=== PATIENT | female | born 1995 | race African-American/Black ===

== ENCOUNTER 2024-07-11 10:12 | Emergency (ER) | payer SELFPAY ==
[~2024-07-11] VITALS: Ht 180.3 cm; Wt 70.0 kg
[2024-07-11 10:29] VITALS: BP 138/77; TEMP 98; O2SAT 100
[2024-07-11 10:59] LABS: HEMATOCRIT 35.5 % (36.0-47.0); HEMOGLOBIN 11.7 g/dl (12.0-15.5); MEAN CORPUSCULAR HEMOGLOBIN 29.2 pg (27.0-33.0); MEAN CORPUSCULAR VOLUME 88.5 fl (80.0-96.0); PLATELET COUNT, AUTOMATED 187 10^3/uL (150-450); RED BLOOD COUNT 4.01 10^6/uL (4.00-5.40); WHITE BLOOD COUNT 7.4 10^3/uL (4.0-10.0)
[2024-07-11 11:25] LABS: AMPHETAMINES LEVEL URINE NEGATIVE (NEGATIVE); BARBITURATES URINE NEGATIVE (NEGATIVE); BENZODIAZEPINES URINE NEGATIVE (NEGATIVE); COCAINE METABOLITE URINE NEGATIVE (NEGATIVE); METHADONE URINE NEGATIVE (NEGATIVE); OPIATES URINE NEGATIVE (NEGATIVE); PHENCYCLIDINE URINE NEGATIVE (NEGATIVE)
[2024-07-11 11:26] LABS: CANNABINOIDS URINE POSITIVE (NEGATIVE)
[2024-07-11 11:28] LABS: ETHYL ALCOHOL (ETHANOL) 0.004 % (0.000-0.010)
[2024-07-11 11:30] LABS: ALBUMIN 3.7 G/DL (3.2-5.2); ALKALINE PHOSPHATASE 59 U/L (35-104); ALT/SGPT 17 U/L (7.0-40); AST/SGOT 19 U/L (<34); BILIRUBIN,DIRECT 0.2 MG/DL (<0.4); BILIRUBIN,TOTAL 0.7 MG/DL (0.3-1.2); BLOOD UREA NITROGEN 11 MG/DL (9-23); CALCIUM LEVEL 9.1 MG/DL (8.5-10.1); CARBON DIOXIDE LEVEL 26 MMOL/L (20-31); CHLORIDE LEVEL 110 MMOL/L (98-107); CREATININE FOR GFR 0.89 MG/DL (0.55-1.30); GLOMERULAR FILTRATION RATE > 60.0 (>60); GLUCOSE, FASTING 96 MG/DL (60-100); POTASSIUM SERUM 4.2 MMOL/L (3.5-5.1); SALICYLATE LEVEL < 3.0 MG/DL (<30); SODIUM LEVEL 143 MMOL/L (136-145); TOTAL PROTEIN 6.9 G/DL (5.7-8.2)
[2024-07-11 11:32] LABS: THYROID STIMULATING HORMONE 1.576 uIU/ML (0.55-4.78)
[2024-07-11] MEDS ORDERED: HYDR50CA2 PO (13:32)
[2024-07-11] MEDS ORDERED: PROP80CA PO (13:32)
[2024-07-11] MEDS ORDERED: POTA10807 PO (13:32)
[2024-07-11] MEDS ORDERED: NORT0.5T2 PO (13:32)
[2024-07-11] MEDS ORDERED: VENTAER INH (13:32)
[2024-07-11] MEDS ORDERED: LITH300C PO (13:32)
[2024-07-11] MEDS ORDERED: LYRI300C PO (13:32)
[2024-07-11] MEDS ORDERED: ATOG60TA PO (13:32)
[2024-07-11] MEDS ORDERED: REXU1TAB2 PO (13:32)
[2024-07-11] MEDS ORDERED: QUET100T2 PO (13:32)
[2024-07-11] MEDS ORDERED: FLUD0.1T PO (13:32)
[2024-07-11] MEDS ORDERED: HOME MED LIST COMPLETE! XX SCH (13:35)
== END 2024-07-11 13:54 | disposition home or self-care (01) ==
LOC: M ED 10:12
DX: F41.9 Anxiety disorder, unspecified (principal); J45.909 Unspecified asthma, uncomplicated; F17.200 Nicotine dependence, unspecified, uncomplicated; F12.10 Cannabis abuse, uncomplicated

== ENCOUNTER 2024-07-11 23:43 | Inpatient (IN) | payer BC, SELFPAY ==
[~2024-07-11] VITALS: Ht 177.8 cm; Wt 60.6 kg
[~2024-07-11 23:43] MED LIST: ATOG60TA PO; FLUD0.1T PO; HYDR50CA2 PO; LITH300C PO; LYRI300C PO; NORT0.5T2 PO; POTA10807 PO; PROP80CA PO; QUET100T2 PO; REXU1TAB2 PO; VENTAER INH
[2024-07-12 00:45] LABS: BASO # 0.1 10^3/uL (0.0-0.2); BASO % 0.8 % (0.0-1.0); EOS # 0.2 10^3/uL (0.0-0.5); HEMATOCRIT 32.7 % (36.0-47.0); HEMOGLOBIN 10.9 g/dl (12.0-15.5); LYMPH # 1.6 10^3/uL (1.5-5.0); LYMPH % 20.5 % (24.0-44.0); MEAN CORPUSCULAR HEMOGLOBIN 29.3 pg (27.0-33.0); MEAN CORPUSCULAR HGB CONC 33.3 g/dl (32.0-36.5); MEAN CORPUSCULAR VOLUME 87.9 fl (80.0-96.0); MONO # 0.7 10^3/uL (0.0-0.8); MONO % 8.5 % (2.0-8.0); NEUTROPHILS # 5.4 10^3/uL (1.5-8.5); NEUTROPHILS % 68.1 % (36.0-66.0); PLATELET COUNT, AUTOMATED 164 10^3/uL (150-450); RED BLOOD COUNT 3.72 10^6/uL (4.00-5.40); WHITE BLOOD COUNT 7.9 10^3/uL (4.0-10.0)
[2024-07-12 00:55] LABS: ETHYL ALCOHOL (ETHANOL) 0.004 % (0.000-0.010)
[2024-07-12 00:56] LABS: CPK CREATINE PHOSPHOKINASE 164 U/L (34-145)
[2024-07-12 00:57] LABS: SALICYLATE LEVEL < 3.0 MG/DL (<30)
[2024-07-12 00:59] LABS: THYROID STIMULATING HORMONE 2.891 uIU/ML (0.55-4.78)
[2024-07-12 01:01] LABS: ALBUMIN 3.6 G/DL (3.2-5.2); ALKALINE PHOSPHATASE 51 U/L (35-104); ALT/SGPT 16 U/L (7.0-40); AST/SGOT 15 U/L (<34); BILIRUBIN,DIRECT 0.4 MG/DL (<0.4); BILIRUBIN,TOTAL 1.1 MG/DL (0.3-1.2); BLOOD UREA NITROGEN 8 MG/DL (9-23); CARBON DIOXIDE LEVEL 24 MMOL/L (20-31); CHLORIDE LEVEL 112 MMOL/L (98-107); CREATININE FOR GFR 0.84 MG/DL (0.55-1.30); GLOMERULAR FILTRATION RATE > 60.0 (>60); GLUCOSE, FASTING 91 MG/DL (60-100); POTASSIUM SERUM 4.4 MMOL/L (3.5-5.1); SODIUM LEVEL 143 MMOL/L (136-145); TOTAL PROTEIN 6.5 G/DL (5.7-8.2)
[2024-07-12] MEDS: NS (Normal Saline) 0.9% 1,000 ML IV ONE (01:12)
[2024-07-12 02:47] LABS: HCG, SERUM QUALITATIVE NEGATIVE (NEGATIVE)
[2024-07-12 03:07] LABS: AMPHETAMINES LEVEL URINE NEGATIVE (NEGATIVE)
[2024-07-12 03:08] LABS: BARBITURATES URINE NEGATIVE (NEGATIVE); BENZODIAZEPINES URINE NEGATIVE (NEGATIVE); COCAINE METABOLITE URINE NEGATIVE (NEGATIVE); METHADONE URINE NEGATIVE (NEGATIVE); OPIATES URINE NEGATIVE (NEGATIVE); PHENCYCLIDINE URINE NEGATIVE (NEGATIVE)
[2024-07-12 03:12] LABS: CANNABINOIDS URINE POSITIVE (NEGATIVE)
[2024-07-12] MEDS: ONDANSETRON 4MG 2ML VIAL IV ONE (03:13)
[2024-07-12 05:03] LABS: BLOOD UREA NITROGEN 7 MG/DL (9-23); CALCIUM LEVEL 8.2 MG/DL (8.5-10.1); CARBON DIOXIDE LEVEL 23 MMOL/L (20-31); CHLORIDE LEVEL 114 MMOL/L (98-107); CREATININE FOR GFR 0.74 MG/DL (0.55-1.30); GLOMERULAR FILTRATION RATE > 60.0 (>60); GLUCOSE, FASTING 89 MG/DL (60-100); POTASSIUM SERUM 4.3 MMOL/L (3.5-5.1); SODIUM LEVEL 145 MMOL/L (136-145)
[2024-07-12] MEDS ORDERED: MOM 30ML SUSPENSION UDC PO PRN (06:30)
[2024-07-12] MEDS ORDERED: MAALOX 30 ML SUSP *UDC PO PRN (06:30)
[2024-07-12] MEDS ORDERED: HOME MED LIST COMPLETE! XX SCH (06:40)
[2024-07-12] MEDS: diphenhydrAMINE 25MG CAP PO PRN (09:47)
[2024-07-12 10:15] VITALS: BP 131/81; TEMP 98.1; O2SAT 100
[2024-07-12] MEDS: OLANZapine ORAL DISINTEGRATING TAB 5MG PO ONE (10:36)
[2024-07-12] MEDS: QUEtiapine FUMARATE 100 MG TAB PO SCH (21:22)
[2024-07-12] MEDS: LITHIUM CARBONATE 300 MG CAP PO SCH (21:22)
[2024-07-12] MEDS: PREGABALIN 100 MG CAP (LYRICA) PO SCH (21:22)
[2024-07-12] MEDS: hydrOXYzine 50 MG TAB PO SCH (21:22)
[2024-07-13 06:34] VITALS: BP 109/59; TEMP 98; O2SAT 99
[2024-07-13 09:35] VITALS: BP 122/92
[2024-07-13] MEDS: BREXPIPRAZOLE 0.5MG TABLET (REXULTI) PO SCH (09:37)
[2024-07-13] MEDS: ACETAMINOPHEN 325 MG TAB PO PRN (09:37)
[2024-07-13] MEDS: PROPRANOLOL 80MG LA CAP PO SCH (09:38)
[2024-07-13] MEDS: FLUDROCORTISONE ACETATE 0.1 MG TAB PO SCH (09:38)
[2024-07-13] MEDS: POTASSIUM CITRATE 1080MG (10MEQ) TAB PO SCH (09:38)
[2024-07-13 15:12] VITALS: BP 167/67; TEMP 98.3; O2SAT 98
[2024-07-13] MEDS ORDERED: BACL10TA2 PO (15:47)
[2024-07-13] MEDS ORDERED: MIDO2.5T3 PO (15:47)
[2024-07-14 06:35] VITALS: BP 104/67; TEMP 97.9; O2SAT 100
[2024-07-14 07:58] VITALS: BP 120/79; TEMP 97.7; O2SAT 100
[2024-07-14 14:52] VITALS: BP 121/70; TEMP 97.9; O2SAT 100
[2024-07-14] MEDS: ALBUTEROL 90 MCG/ACT 8GM HFA INHALER INH PRN (20:09)
[2024-07-15 06:27] VITALS: BP 115/72; TEMP 97.2; O2SAT 100
[2024-07-15 08:20] VITALS: BP 132/90; TEMP 97.8; O2SAT 93
[2024-07-15 08:33] VITALS: BP 132/90
[2024-07-15] MEDS: OLANZapine ORAL DISINTEGRATING TAB 5MG PO PRN (14:31)
[2024-07-15] MEDS: fluvoxaMINE MALEATE 50 MG TAB PO SCH (21:04)
[2024-07-16 06:16] VITALS: BP 111/64; TEMP 97.8; O2SAT 100
[2024-07-16 16:08] VITALS: BP 124/74; TEMP 97.8; O2SAT 100
[2024-07-16] MEDS: traZODone 50 MG TAB PO PRN (20:02)
[2024-07-17 06:28] VITALS: BP 127/72; TEMP 98.1; O2SAT 100
[2024-07-17 08:12] VITALS: BP 124/82
[2024-07-17 14:59] VITALS: BP 114/60; TEMP 98.4; O2SAT 98
[2024-07-17 15:25] VITALS: BP 114/60; TEMP 98.4; O2SAT 98
[2024-07-17] MEDS: MIDODRINE 2.5 MG TAB PO PRN (17:20)
[2024-07-18 06:25] VITALS: BP 115/57; TEMP 98.3; O2SAT 99
[2024-07-18 09:09] VITALS: BP 127/77
[2024-07-18 16:37] VITALS: BP 121/69; TEMP 97.9; O2SAT 99
[2024-07-19 06:32] VITALS: BP 144/67; TEMP 97.5; O2SAT 99
[2024-07-19 08:15] VITALS: BP 138/87
[2024-07-19 14:56] VITALS: BP 131/72; TEMP 98.7; O2SAT 100
[2024-07-20 06:25] VITALS: BP 114/56; TEMP 96.9; O2SAT 97
[2024-07-20] MEDS: ATOMOXETINE HCL 10MG CAPSULE (STRATTERA) PO SCH (13:07)
[2024-07-20 15:09] VITALS: BP 118/55; TEMP 98.6; O2SAT 100
[2024-07-21 06:32] VITALS: BP 113/63; TEMP 97.9; O2SAT 100
[2024-07-21 14:37] VITALS: BP 114/59; TEMP 98.8; O2SAT 96
[2024-07-21] MEDS: IBUPROFEN 400MG TAB PO PRN (17:34)
[2024-07-22 06:21] VITALS: BP 121/79; TEMP 97.7; O2SAT 100
[2024-07-22 15:51] VITALS: BP 115/62; TEMP 98.7; O2SAT 97
[2024-07-23 07:02] VITALS: BP 104/65; TEMP 98; O2SAT 100
[2024-07-23 15:29] VITALS: BP 133/76; TEMP 98.2; O2SAT 99
[2024-07-24 06:25] VITALS: BP 118/68; TEMP 96.3; O2SAT 100
[2024-07-24 08:17] VITALS: BP 138/88
[2024-07-24] MEDS: LORazepam 2 MG TAB PO ONE (17:01)
[2024-07-24] MEDS: QULIPTA 60 MG PO PRN (21:30)
[2024-07-25 06:37] VITALS: BP 147/93; TEMP 97.8; O2SAT 100
[2024-07-25 14:45] VITALS: BP 129/61; TEMP 98.6; O2SAT 100
[2024-07-26 06:12] VITALS: BP 142/63; TEMP 97.6; O2SAT 98
[2024-07-26] MEDS ORDERED: ATOM10CA6 PO (08:06)
[2024-07-26] MEDS ORDERED: FLUV50TA PO (08:06)
[2024-07-26] MEDS ORDERED: REXU1TAB2 PO (08:06)
[2024-07-26] MEDS ORDERED: OLAN1TAB16 PO (08:06)
[2024-07-26] MEDS ORDERED: LITH300C PO (08:06)
[2024-07-26 08:27] VITALS: BP 149/98
== END 2024-07-26 10:50 | disposition home or self-care (01) | DRG 881 ==
LOC: M ED 23:43 → M ED INP 07-12 06:29 → M PSY 07-12 09:02 → UNDODISIN 07-24 13:52
PROVIDERS: ADMIT Psychiatry & Neurology Psychiatry; ATTEND Psychiatry & Neurology Psychiatry
DX: F32.A Depression, unspecified (principal); R45.851 Suicidal ideations; F84.0 Autistic disorder; F43.10 Post-traumatic stress disorder, unspecified; F41.1 Generalized anxiety disorder; F42.9 Obsessive-compulsive disorder, unspecified; Z79.899 Other long term (current) drug therapy; F90.9 Attention-deficit hyperactivity disorder, unspecified type; I34.0 Nonrheumatic mitral (valve) insufficiency